=== PATIENT | male | born 1990 ===

== ENCOUNTER 2022-02-27 20:16 | Emergency (ER) | payer SELFPAY | END 2022-02-27 22:00 | LOC: MW.ED 20:16 | DX: L08.9 Local infection of the skin and subcutaneous tissue, unspecified (principal); Z02.89 Encounter for other administrative examinations | CPT/HCPCS: 99283 ==

== ENCOUNTER 2022-04-04 14:55 | Emergency (ER) | payer SELFPAY ==
[2022-04-04] MEDS ORDERED: Ibuprofen 600 MG Tab PO ONE (15:06)
== END 2022-04-04 15:19 | disposition home or self-care (01) ==
LOC: MW.ED 14:55
DX: S93.402A Sprain of unspecified ligament of left ankle, initial encounter (principal); E86.0 Dehydration; X50.1XXA Overexertion from prolonged static or awkward postures, initial encounter
CPT/HCPCS: 99283; A9270; 99282